=== PATIENT | female | born 1980 | race Caucasian/White ===

== ENCOUNTER 2022-01-22 12:05 | Day surgery (SDC) | payer OTHER ==
[2022-01-21 11:27] VITALS: BMI 26.4
[2022-01-22 12:40] VITALS: RESP 18
[2022-01-22 13:41] VITALS: BP 137/73; PULSE 74; TEMP 97.8
== END 2022-01-22 14:22 | disposition home or self-care (01) ==
LOC: FASU-ENDO 12:05
PROVIDERS: ATTEND Internal Medicine Gastroenterology
PROC: 0DBL8ZX Excision of Transverse Colon, Via Natural or Artificial Opening Endoscopic, Diagnostic (ICD-10-PCS; 2022-01-22)
PROC: 0DBP8ZX Excision of Rectum, Via Natural or Artificial Opening Endoscopic, Diagnostic (ICD-10-PCS; 2022-01-22)
PROC: 0DBM8ZX Excision of Descending Colon, Via Natural or Artificial Opening Endoscopic, Diagnostic (ICD-10-PCS; 2022-01-22)
PROC: 0DBK8ZX Excision of Ascending Colon, Via Natural or Artificial Opening Endoscopic, Diagnostic (ICD-10-PCS; principal; 2022-01-22 13:15)
DX: R19.4 Change in bowel habit (principal); K63.5 Polyp of colon; K64.1 Second degree hemorrhoids; K57.30 Diverticulosis of large intestine without perforation or abscess without bleeding
CPT/HCPCS: 88305-TC